=== PATIENT | female | born 1990 | race Caucasian/White ===

== ENCOUNTER → 2019-03-16 | Outpatient (CLI) | payer OTHER ==
--- NOTE | 2019-03-16 14:50 | Diagnostic Imaging Report ---
Exam: Right wrist radiographs-3 views History: Wrist pain. Comparison: None. Findings: No evidence of acute fracture, malalignment, or soft tissue abnormality. Impression: No acute radiographic abnormality. Signed by: Dr. Martina Albarado MD on 03/16/2019 2:47 PM
== END ==
LOC: RAD 13:34
PROVIDERS: ATTEND Internal Medicine
DX: M25.531 Pain in right wrist (principal)